=== PATIENT | female | born 1975 | race Caucasian/White ===

== ENCOUNTER 2016-07-26 13:10 | Emergency (ER) | payer BC, OTHER ==
[2016-07-26 17:05] LABS: SYNOVIAL FLUID SOURCE KNEE
[2016-07-26 17:06] LABS: SYNOVIAL FLUID COLOR AMBER
[2016-07-26] MEDS ORDERED: TRAMADOL HCL 50 MG TABLET ONE (17:06)
[2016-07-26 17:07] LABS: SYNOVIAL FLUID APPEARANCE HAZY
[2016-07-26 17:17] LABS: SYNOVIAL FLUID NEUTROPHILS 70 % (0-20)
[2016-07-26 17:40] LABS: TOTAL PROTEIN,BODY FLUID 3.5 g/dl
[2016-07-27 09:50] LABS: CRYSTAL SOURCE Synovial (())
== END 2016-07-26 18:33 | disposition home or self-care (01) ==
LOC: ED 13:10
DX: M25.461 Effusion, right knee (principal); M17.11 Unilateral primary osteoarthritis, right knee
CPT/HCPCS: 89051; 89060; 87070; 82945; 84157; 99282; 20610 ×2; 99283; A9270